=== PATIENT | female | born 1980 | race Caucasian/White ===

== ENCOUNTER 2017-06-26 14:47 | Emergency (ER) | payer SELFPAY ==
[~2017-06-26] VITALS: Ht 162.6 cm; Wt 55.8 kg
[2017-06-26] MEDS ORDERED: Ketorolac 30mg Inj IM ONE (15:45)
[2017-06-26] MEDS ORDERED: Methocarbamol 750mg tab ORAL ONE (15:45)
[2017-06-26] MEDS ORDERED: ROBAXIN-750750 MG PO (16:12)
[2017-06-26] MEDS ORDERED: IBUPROFEN600 MG ORAL (16:12)
[2017-06-26 17:22] VITALS: BP 132/76
[2017-06-26 17:33] VITALS: BP 110/69
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
== END 2017-06-26 17:22 | disposition home or self-care (01) ==
LOC: EMR 16:02
DX: T14.8XXA Other injury of unspecified body region, initial encounter (principal); M25.512 Pain in left shoulder; M54.2 Cervicalgia; V43.52XA Car driver injured in collision with other type car in traffic accident, initial encounter; Y92.410 Unspecified street and highway as the place of occurrence of the external cause
CPT/HCPCS: 96372; 99283; J1885